=== PATIENT | female | born 1995 | race American Indian/Alaskan Native ===

== ENCOUNTER 2022-07-18 13:21 | Outpatient (CLI) | payer OTHER ==
[2022-07-18 13:46] VITALS: BP 131/77
[2022-07-18] MEDS ORDERED: LACTATED RINGERS 500 ML IV ONE (14:07)
[2022-07-18 14:52] LABS: Bacteria,Urine 1+ /HPF (Negative); Mucus,Urine FEW /HPF; RBC,Urine < 1.0 /HPF (0.0-6.0)
[2022-07-18 15:15] LABS: Color,Urine Straw (Yellow)
[2022-07-18] MEDS ORDERED: ONDANSETRON 4 MG/2 ML INJ IV ONE (16:44)
== END 2022-07-18 17:04 | disposition home or self-care (01) ==
LOC: TRG 13:21 → APU 13:21 → TRG 17:04
PROVIDERS: ATTEND Obstetrics & Gynecology
DX: O47.03 False labor before 37 completed weeks of gestation, third trimester (principal); O26.893 Other specified pregnancy related conditions, third trimester; R10.31 Right lower quadrant pain; R07.81 Pleurodynia; O24.013 Pre-existing type 1 diabetes mellitus, in pregnancy, third trimester; O99.333 Smoking (tobacco) complicating pregnancy, third trimester; F17.200 Nicotine dependence, unspecified, uncomplicated; O99.323 Drug use complicating pregnancy, third trimester; F12.90 Cannabis use, unspecified, uncomplicated; Z3A.31 31 weeks gestation of pregnancy
CPT/HCPCS: 59025; 81001; 96365; 96375; J0690; J2405; J7120; 96360